=== PATIENT | female | born 1975 | race Asian ===

== ENCOUNTER 2018-03-12 08:20 | Outpatient (CLI) | payer BC ==
[2018-03-12 10:53] LABS: BASOPHILS # (AUTO) 0.1 K/uL (0.0-0.2); BASOPHILS % (AUTO) 0.7 % (0.0-2.0); EOSINOPHILS # (AUTO) 0.2 K/uL (0.0-0.4); EOSINOPHILS % (AUTO) 2.9 % (0.0-4.0); HEMATOCRIT 45.2 % (36-48); HEMOGLOBIN 14.8 g/dL (12.0-16.0); LYMPHOCYTES # (AUTO) 2.1 K/uL (1.0-5.5); LYMPHOCYTES % (AUTO) 24.5 % (20.5-51.5); MEAN CORPUSCULAR HEMOGLOBIN 27 pg (27-31); MEAN CORPUSCULAR HGB CONC 33 % (32-36); MEAN CORPUSCULAR VOLUME 82 fL (79.0-98.0); MONOCYTES # (AUTO) 0.4 K/uL (0.0-1.0); MONOCYTES % (AUTO) 5.2 % (1.7-9.3); NEUTROPHILS # (AUTO) 5.6 K/uL (1.8-7.7); NEUTROPHILS % (AUTO) 66.7 % (40.0-70.0); PLATELET COUNT (AUTO) 313 K/uL (130-430); RED BLOOD CELL COUNT(AUTO) 5.49 MIL/uL (4.2-6.2); RED CELL DISTRIBUTION WIDTH 13.1 % (9.0-15.0); WHITE BLOOD COUNT (AUTO) 8.4 K/uL (4.8-10.8)
[2018-03-12 11:30] LABS: ALBUMIN 3.8 g/dL (3.4-4.8); CALCIUM 8.7 mg/dL (8.4-11.0); CREATININE 0.75 mg/dL (0.55-1.30); POTASSIUM 3.6 mmol/L (3.5-5.1); THYROID STIMULATING HORMONE 1.1 uIu/mL (0.34-4.82); TOTAL BILIRUBIN 0.5 mg/dL (0.0-1.0); URIC ACID 6.1 mg/dL (2.4-7.0)
[2018-03-13 14:32] LABS: ESTRADIOL 93.8 pg/mL (.); FOLLICLE STIMULATION HORMONE 4.1 mIU/mL (.); LUETENIZING HORMONE 3.1 mIU/mL (.); PROGESTERONE 6.3 ng/mL (.); PROLACTIN 15.3 ng/mL (4.8-23.3)
[2018-03-13 17:18] LABS: HEMOGLOBIN A1C 5.8 % (4.8-5.6)
== END 2018-03-12 19:31 | disposition home or self-care (01) ==
LOC: SUS 08:20
PROVIDERS: ATTEND Internal Medicine
DX: Z00.01 Encounter for general adult medical examination with abnormal findings (principal); I67.2 Cerebral atherosclerosis
CPT/HCPCS: 36415; 70551; 80053; 80061; 82306; 82607; 82670; 82672; 83001; 83002; 83036; 84144; 84146; 84443-TC; 84550-TC; 85025; 93880